=== PATIENT | male | born 1960 | race Caucasian/White ===

== ENCOUNTER 2017-04-03 22:09 | Observation (INO) | payer MEDICARE ==
[~2017-04-03] VITALS: Ht 165.1 cm; Wt 73.0 kg
[2017-04-03 22:12] VITALS: BP 146/85; PULSE 111; RESP 18; TEMP 97.4; O2SAT 96
[2017-04-03] MEDS ORDERED: INSU1.2I SQ (22:26)
[2017-04-03] MEDS ORDERED: METF500T PO (22:26)
[2017-04-03] MEDS ORDERED: FENO160T PO (22:35)
[2017-04-03 22:37] VITALS: RESP 14; O2SAT 96
[2017-04-03 22:40] VITALS: BP 123/82; PULSE 105; RESP 18; O2SAT 95
--- NOTE | 2017-04-03 22:42 | PD ---
HPI Chief Complaint: Diabetic Time Seen by Provider: 22:25 Travel History International Travel<30 days: No Contact w/Intl Traveler<30days: No Traveled to known affect area: No History of Present Illness HPI 56-year-old male complains of elevated blood sugar. Patient states that he was seen by personal physician for the past year and has borderline elevated blood sugar. Patient was advised diet control and weight loss. Patient was seen by personal physician and again a month ago and blood sugar was elevated. Patient was advised to be on medication. Patient however left home and went to [place]. Patient has not been able to see a local physician until 3 days ago. Patient was advised that his blood sugar was elevated and was put on metformin 500 mg twice a day. Patient states that his blood sugar persistently elevated despite the medication so he took metformin 1000 g twice a day today. Patient also took Tojeo today. Patient denies any headache. Patient denies any chest pain or shortness of breath. Patient states that he has intermittent left flank pain for the past month or so. Patient denies any dysuria. Patient states that he has urinary frequency. Patient complained of weight loss for the past month. Patient denies any fever chills. Patient also has history hypertension, hyperlipidemia. PFSH Past Medical History Diabetes: Yes Social History Tobacco Use: No Allergies-Medications (Allergen,Severity, Reaction): Coded Allergies: No Known Allergies (Unverified , 04/03/17) Reported Meds & Prescriptions Reported Meds & Active Scripts Active Metformin ER (Metformin HCl) 500 Mg Aleta 500 Mg PO DAILY 2 tablets by mouth BID preferably w/ meals Toujeo Solostar Pen Inj (Insulin Glargine) 300 Unit/Ml Pen 12 Units SQ HS Glimepiride 1 Mg Tab 1 Mg PO DAILY Take with breakfast or first main meal Reported Multiple Vitamin 1 Tab 1 Tab PO DAILY [Fish Oil] 1,000 Mg PO BID Vitamin B-12 (Cyanocobalamin) 1,000 Mcg Tab 1,000 Mcg PO DAILY Vitamin D3 (Cholecalciferol) 1,000 Unit Cap 1,000 Units PO DAILY Lutein 6 Mg Cap 6 Mg PO DAILY Chromium Picolinate 1,000 Mcg Tab 1 Tab PO DAILY Alpha Lipoic Acid 200 Mg Cap 200 Mg PO DAILY Turmeric (Turmeric Root Extract) 500 Mg Capsule 1 Cap PO DAILY Magnesium Oxide 400 Mg Tab 400 Mg PO DAILY Eql Cinnamon (Cinnamon) 500 Mg Cap 1,000 Mg PO BID Omeprazole 40 Mg Cap 40 Mg PO DAILY Amlodipine (Amlodipine Besylate) 5 Mg Tab 5 Mg PO DAILY Fenofibrate 160 Mg Tab 160 Mg PO DAILY Metformin (Metformin HCl) 500 Mg Tab 1,000 Mg PO ONCE With a meal Review of Systems General / Constitutional: No: Fever Eyes: No: Visual changes HENT: No: Headaches Cardiovascular: No: Chest Pain or Discomfort Respiratory: No: Shortness of Breath Gastrointestinal: No: Abdominal Pain Genitourinary: No: Dysuria Musculoskeletal: No: Pain Skin: No Rash Neurologic: No: Weakness Psychiatric: No: Depression Endocrine: No: Polydipsia Hematologic/Lymphatic: No: Easy Bruising Physical Exam Narrative GENERAL: Well-nourished, well-developed patient. SKIN: Focused skin assessment warm/dry. HEAD: Normocephalic. EYES: No scleral icterus. No injection or drainage. NECK: Supple, trachea midline. No JVD or lymphadenopathy. CARDIOVASCULAR: Regular rate and rhythm without murmurs, gallops, or rubs. RESPIRATORY: Breath sounds equal bilaterally. No accessory muscle use. GASTROINTESTINAL: Abdomen soft, non-tender, nondistended. MUSCULOSKELETAL: No cyanosis, or edema. BACK: Nontender without obvious deformity. No CVA tenderness. Neurologic exam normal. Data Data Last Documented VS Vital Signs Date Time Temp Pulse Resp B/P (MAP) Pulse Ox O2 Delivery O2 Flow Rate FiO2 04/04/17 01:10 101 16 114/74 (87) 94 Room Air 04/03/17 22:12 97.4 Orders Orders Complete Blood Count With Diff (04/03/17 22:33) Comprehensive Metabolic Panel (04/03/17 22:33) Beta Hydroxybutyrate (Acetone) (04/03/17 22:33) Iv Access Insert/Monitor (04/03/17 22:33) Ecg Monitoring (04/03/17 22:33) Oximetry (04/03/17 22:33) Sodium Chlor 0.9% 1000 Ml Inj (Ns 1000 M (04/03/17 22:45) Urinalysis - C+S If Indicated (04/03/17 22:40) Sodium Chlor 0.9% 1000 Ml Inj (Ns 1000 M (04/04/17 01:01) Dext 5%-Nacl 0.9% 1000 Ml Inj (D5w-Ns 10 (04/04/17 01:01) Insulin Human Regular Inj (Novolin R Inj (04/04/17 01:15) Insulin Regular (Iv Infusion) (Novolin R (04/04/17 01:15) Potassium Chlor 40 Meq Premix (Kcl 40 Me (04/04/17 01:15) Potassium Chlor 40 Meq Premix (Kcl 40 Me (04/04/17 01:15) Potassium Chlor 20 Meq Premix (Kcl 20 Me (04/04/17 01:15) Potassium Chlor 20 Meq Premix (Kcl 20 Me (04/04/17 01:15) Potassium Chlor 20 Meq Premix (Kcl 20 Me (04/04/17 01:15) Potassium Chlor 20 Meq Premix (Kcl 20 Me (04/04/17 01:15) Potassium Chlor 20 Meq Premix (Kcl 20 Me (04/04/17 01:15) Potassium Chlor 20 Meq Premix (Kcl 20 Me (04/04/17 01:15) Sodium Bicarbonate 8.4% Inj (Sodium Bica (04/04/17 01:15) Sodium Bicarbonate 8.4% Inj (Sodium Bica (04/04/17 01:15) Sodium Phosphate Inj (Sodium Phosphate I (04/04/17 01:15) Basic Metabolic Panel (Bmp) (04/04/17 06:01) Magnesium (Mg) (04/04/17 06:01) Phosphorus (Po4) (04/04/17 06:01) Blood Gas Venous (Vbg) (04/04/17 01:20) Sodium Chlor 0.9% 1000 Ml Inj (Ns 1000 M (04/04/17 01:30) Admit Order (Ed Use Only) (04/04/17 ) Place In Observation (04/04/17 ) Vital Signs (Adult) Q4H (04/04/17 01:32) Activity Oob With Assistance (04/04/17 01:32) [place] Drill Operator / Telemetry .CONTINUOUS (04/04/17 01:32) Sodium Chlor 0.9% 1000 Ml Inj (Ns 1000 M (04/04/17 01:32) Sodium Chloride 0.9% Flush (Ns Flush) (04/04/17 01:45) Sodium Chloride 0.9% Flush (Ns Flush) (04/04/17 09:00) Case Management Consult (04/04/17 01:32) Naloxone Inj (Narcan Inj) (04/04/17 01:45) Bedside Glucose Q4H (04/04/17 01:32) Blood Glucose Goal (Criteria) (04/04/17 01:32) Hypoglycemia 70 Mg/Dl Or < (04/04/17 01:32) Notify Dr: Other (04/04/17 01:32) Dextrose 50% In Jose (Vial) Inj (D50w (Vi (04/04/17 01:45) Glucagon Inj (Glucagon Inj) (04/04/17 01:45) Insulin Aspart Supplemtl Scale (Novolog (04/04/17 02:00) Sodium Chlor 0.9% 1000 Ml Inj (Ns 1000 M (04/04/17 01:45) ^ Other Nursing Orders (04/04/17 01:32) ^ Other Nursing Orders (04/04/17 01:32) Labs Laboratory Tests Test 04/03/17 23:00 04/04/17 00:25 04/04/17 01:25 White Blood Count 12.8 TH/MM3 Red Blood Count 4.17 MIL/MM3 Hemoglobin 12.7 GM/DL Hematocrit 38.7 % Mean Corpuscular Volume 92.8 FL Mean Corpuscular Hemoglobin 30.4 PG Mean Corpuscular Hemoglobin Concent 32.7 % Red Cell Distribution Width 12.6 % Platelet Count 308 TH/MM3 Mean Platelet Volume 7.9 FL Neutrophils (%) (Auto) 70.0 % Lymphocytes (%) (Auto) 19.5 % Monocytes (%) (Auto) 8.3 % Eosinophils (%) (Auto) 0.3 % Basophils (%) (Auto) 1.9 % Neutrophils # (Auto) 9.0 TH/MM3 Lymphocytes # (Auto) 2.5 TH/MM3 Monocytes # (Auto) 1.1 TH/MM3 Eosinophils # (Auto) 0.0 TH/MM3 Basophils # (Auto) 0.2 TH/MM3 CBC Comment DIFF FINAL Differential Comment Blood Urea Nitrogen 26 MG/DL Creatinine 0.60 MG/DL Random Glucose 353 MG/DL Total Protein 7.3 GM/DL Albumin 2.4 GM/DL Calcium Level 9.3 MG/DL Alkaline Phosphatase 86 U/L Aspartate Amino Transf (AST/SGOT) 16 U/L Alanine Aminotransferase (ALT/SGPT) 22 U/L Total Bilirubin 0.4 MG/DL Sodium Level 131 MEQ/L Potassium Level 3.7 MEQ/L Chloride Level 98 MEQ/L Carbon Dioxide Level 17.1 MEQ/L Anion Gap 16 MEQ/L Estimat Glomerular Filtration Rate 139 ML/MIN B-Hydroxybutyrate 5.68 MMOL/L Urine Color YELLOW Urine Turbidity CLEAR Urine pH 6.0 Urine Specific [place] 1.030 Urine Protein NEG mg/dL Urine Glucose (UA) 1000 OR GREATER mg/dL Urine Ketones 80 OR GREATER mg/dL Urine Occult Blood NEG Urine Nitrite NEG Urine Bilirubin NEG Urine Leukocyte Esterase NEG Urine WBC 0-2 /hpf Urine Squamous Epithelial Cells 0-5 /hpf Microscopic Urinalysis Comment CULT NOT INDICATED Blood Gas Puncture Site IV Blood Gas Patient Temperature 98.6 Venous Blood pH 7.41 Venous Blood Partial Pressure CO2 30 mmHg Venous Blood Partial Pressure O2 70 mmHg Venous Blood HCO3 19 mmol/L Venous Blood Oxygen Saturation 91 % Venous Blood Oxygen Content 15.5 Vol % Venous Blood Base Excess -5.3 mmol/L Oxygen Delivery Device ROOM AIR Blood Gas Inspired Oxygen 21 % MDM Medical Decision Making Medical Screen Exam Complete: Yes Emergency Medical Condition: Yes Differential Diagnosis Differential diagnosis including hyperglycemia, DKA. Narrative Course 56-year-old male with elevated blood sugar. Patient has history of diabetes recently was started on metformin. Scripts Metformin ER (Metformin ER) 500 Mg [place] 500 MG PO DAILY for Blood Sugar Management, #60 TAB 0 Refills 2 tablets by mouth BID preferably w/ meals Prov: Anastacio Hodge MD 04/04/17 Insulin Glargine Inj (Toujeo Solostar Pen Inj) 300 Unit/Ml Pen 12 UNITS SQ HS for Blood Sugar Management, #1 PEN 0 Refills Prov: Anastacio Hodge MD 04/04/17 Glimepiride (Glimepiride) 1 Mg Tab 1 MG PO DAILY for Blood Sugar Management, #30 TAB 0 Refills Take with breakfast or first main meal Prov: Anastacio Hodge MD 04/04/17 Isaak Ang MD Apr 03, 2017 22:42
[2017-04-03] MEDS ORDERED: SODIUM CHLOR 0.9% 1000 ML INJ 1,000 ML IV ONE (22:45)
[2017-04-03 23:10] VITALS: BP 102/80; PULSE 108; RESP 14; O2SAT 95
[2017-04-03 23:14] LABS: BASOPHIL # 0.2 TH/MM3 (0-0.2); BASOPHIL % 1.9 % (0.0-2.0); EOSINOPHIL % 0.3 % (0.0-4.0); HEMATOCRIT 38.7 % (39.0-51.0); HEMOGLOBIN 12.7 GM/DL (13.0-17.0); LYMPH % 19.5 % (9.0-44.0); LYMPHOCYTE # 2.5 TH/MM3 (1.0-4.8); MEAN CELL VOLUME 92.8 FL (80.0-100.0); MEAN CORPUSCULAR HEMOGLOBIN 30.4 PG (27.0-34.0); MEAN CORPUSCULAR HGB CONC 32.7 % (32.0-36.0); MEAN PLATELET VOLUME 7.9 FL (7.0-11.0); MONO % 8.3 % (0.0-8.0); MONOCYTE # 1.1 TH/MM3 (0-0.9); PLATELET COUNT 308 TH/MM3 (150-450); RED BLOOD COUNT 4.17 MIL/MM3 (4.50-5.90); RED CELL DISTRIBUTION WIDTH 12.6 % (11.6-17.2); WHITE BLOOD COUNT 12.8 TH/MM3 (4.0-11.0)
[2017-04-03 23:22] LABS: BLOOD UREA NITROGEN 26 MG/DL (7-18); CHLORIDE 98 MEQ/L (98-107); GLOMERULAR FILTRATION RATE 139 ML/MIN (>89); GLUCOSE,RANDOM 353 MG/DL (74-106); SODIUM (NA) 131 MEQ/L (136-145)
[2017-04-03 23:40] VITALS: BP 121/82; PULSE 104; RESP 16; O2SAT 96
[2017-04-03] MEDS ORDERED: CHRO1000 PO (23:56)
[2017-04-03] MEDS ORDERED: LUTE6CAP2 PO (23:56)
[2017-04-03] MEDS ORDERED: MAGN400T2 PO (23:56)
[2017-04-03] MEDS ORDERED: TURM500C7 PO (23:56)
[2017-04-03] MEDS ORDERED: MULTTAB67 PO (23:56)
[2017-04-03] MEDS ORDERED: OMEP40CA2 PO (23:56)
[2017-04-03] MEDS ORDERED: ALPH200C4 PO (23:56)
[2017-04-03] MEDS ORDERED: AMLO5TAB2 PO (23:56)
[2017-04-03] MEDS ORDERED: VITA10002 PO (23:56)
[2017-04-03] MEDS ORDERED: FISHOIL PO (23:56)
[2017-04-03] MEDS ORDERED: CINN500C2 PO (23:56)
[2017-04-03] MEDS ORDERED: CHOL10008 PO (23:56)
[2017-04-04] VITALS (15 sets, daily range): BP systolic 110–140; BP diastolic 70–89; PULSE 82–104; RESP 12–25; TEMP 97.7–98.7; O2SAT 92–98
[2017-04-04 00:04] LABS: ALBUMIN 2.4 GM/DL (3.4-5.0); ALT (GPT) 22 U/L (12-78); AST (GOT) 16 U/L (15-37); BICARBONATE 17.1 MEQ/L (21.0-32.0); CALCIUM 9.3 MG/DL (8.5-10.1)
[2017-04-04 00:13] LABS: ALKALINE PHOSPHATASE 86 U/L (45-117); TOTAL BILIRUBIN ADULT 0.4 MG/DL (0.2-1.0); TOTAL PROTEIN 7.3 GM/DL (6.4-8.2)
[2017-04-04 00:42] LABS: BLOOD, URINE NEG (NEG); GLUCOSE,URINE 1000 OR GREATER mg/dL (NEG); KETONE, URINE 80 OR GREATER mg/dL (NEG); NITRITE,URINE NEG (NEG); URINE LEUKOCYTE ESTERASE NEG (NEG)
[2017-04-04 00:56] LABS: BILIRUBIN, URINE NEG (NEG)
[2017-04-04 00:58] LABS: SQUAMOUS EPITHELIAL CELL URINE 0-5 /hpf (0-5); URINE COLOR YELLOW (YELLW/STRAW); WBC, URINE 0-2 /hpf (0-5)
[2017-04-04] MEDS ORDERED: DEXT 5%-NACL 0.9% 1000 ML INJ 1,000 ML IV SCH ×2 (01:01→09:00)
[2017-04-04] MEDS ORDERED: SODIUM CHLOR 0.9% 1000 ML INJ 1,000 ML IV SCH (01:01)
[2017-04-04] MEDS ORDERED: INSULIN REGULAR (IV INFUSION) 100 UNITS in SODIUM CHLORIDE 0.9% INJ 99 ML IV PRN ×2 (01:15→09:00)
[2017-04-04] MEDS ORDERED: POTASSIUM CHLOR 40 MEQ PREMIX 100 ML IV PRN ×4 (01:15→08:45)
[2017-04-04] MEDS ORDERED: POTASSIUM CHLOR 20 MEQ PREMIX 100 ML IV PRN ×12 (01:15→08:45)
[2017-04-04] MEDS ORDERED: SODIUM PHOSPHATE INJ 15 MMOL in SODIUM CHLORIDE 0.9% INJ 100 ML IV PRN ×2 (01:15→08:45)
[2017-04-04] MEDS ORDERED: INSULIN HUMAN REGULAR 1,000 UNITS/10 ML VIAL IV PUSH ONE (01:15)
[2017-04-04] MEDS ORDERED: SODIUM BICARBONATE 8.4% SOLN 50 MEQ/50 ML VIAL IV PUSH PRN ×4 (01:15→08:45)
[2017-04-04] MEDS ORDERED: SODIUM CHLOR 0.9% 1000 ML INJ 1,000 ML IV ONE ×2 (01:30→01:45)
--- NOTE | 2017-04-04 01:34 | PD ---
Physical Exam Narrative Patient signed out to me by Dr. Ang. Please see his documentation for complete details. Briefly, patient is a 56-year-old male who comes in because he is concerned about his high sugars. He was recently diagnosed with diabetes and was just started on medications. Apparently somebody told him that his high blood sugar could cause him to have a coma, so he came in. He took long-acting insulin at home as well as an urgent care. Data Data Last Documented VS Vital Signs Date Time Temp Pulse Resp B/P (MAP) Pulse Ox O2 Delivery O2 Flow Rate FiO2 04/03/17 23:10 108 14 102/80 (87) 95 Room Air 04/03/17 22:12 97.4 Orders Orders Complete Blood Count With Diff (04/03/17 22:33) Comprehensive Metabolic Panel (04/03/17 22:33) Beta Hydroxybutyrate (Acetone) (04/03/17 22:33) Iv Access Insert/Monitor (04/03/17 22:33) Ecg Monitoring (04/03/17 22:33) Oximetry (04/03/17 22:33) Sodium Chlor 0.9% 1000 Ml Inj (Ns 1000 M (04/03/17 22:45) Urinalysis - C+S If Indicated (04/03/17 22:40) Netbackup Administrator / Telemetry VICTOR M.Q8H (04/04/17 01:01) ^ Insert Iv (04/04/17 01:01) Diet Npo (04/04/17 Breakfast) Sodium Chlor 0.9% 1000 Ml Inj (Ns 1000 M (04/04/17 01:01) Dext 5%-Nacl 0.9% 1000 Ml Inj (D5w-Ns 10 (04/04/17 01:01) Insulin Human Regular Inj (Novolin R Inj (04/04/17 01:15) Insulin Regular (Iv Infusion) (Novolin R (04/04/17 01:15) Potassium Chlor 40 Meq Premix (Kcl 40 Me (04/04/17 01:15) Potassium Chlor 40 Meq Premix (Kcl 40 Me (04/04/17 01:15) Potassium Chlor 20 Meq Premix (Kcl 20 Me (04/04/17 01:15) Potassium Chlor 20 Meq Premix (Kcl 20 Me (04/04/17 01:15) Potassium Chlor 20 Meq Premix (Kcl 20 Me (04/04/17 01:15) Potassium Chlor 20 Meq Premix (Kcl 20 Me (04/04/17 01:15) Potassium Chlor 20 Meq Premix (Kcl 20 Me (04/04/17 01:15) Potassium Chlor 20 Meq Premix (Kcl 20 Me (04/04/17 01:15) Sodium Bicarbonate 8.4% Inj (Sodium Bica (04/04/17 01:15) Sodium Bicarbonate 8.4% Inj (Sodium Bica (04/04/17 01:15) Sodium Phosphate Inj (Sodium Phosphate I (04/04/17 01:15) Basic Metabolic Panel (Bmp) (04/04/17 06:01) Basic Metabolic Panel (Bmp) (04/04/17 12:01) Basic Metabolic Panel (Bmp) (04/04/17 18:01) Basic Metabolic Panel (Bmp) (04/05/17 00:01) Magnesium (Mg) (04/04/17 06:01) Magnesium (Mg) (04/04/17 12:01) Magnesium (Mg) (04/04/17 18:01) Magnesium (Mg) (04/05/17 00:01) Phosphorus (Po4) (04/04/17 06:01) Phosphorus (Po4) (04/04/17 12:01) Phosphorus (Po4) (04/04/17 18:01) Phosphorus (Po4) (04/05/17 00:01) Beta Hydroxybutyrate (Acetone) (04/04/17 12:01) Beta Hydroxybutyrate (Acetone) (04/05/17 00:01) Blood Gas Venous (Vbg) (04/04/17 01:20) Sodium Chlor 0.9% 1000 Ml Inj (Ns 1000 M (04/04/17 01:30) Admit Order (Ed Use Only) (04/04/17 ) Labs Laboratory Tests Test 04/03/17 23:00 04/04/17 00:25 White Blood Count 12.8 TH/MM3 Red Blood Count 4.17 MIL/MM3 Hemoglobin 12.7 GM/DL Hematocrit 38.7 % Mean Corpuscular Volume 92.8 FL Mean Corpuscular Hemoglobin 30.4 PG Mean Corpuscular Hemoglobin Concent 32.7 % Red Cell Distribution Width 12.6 % Platelet Count 308 TH/MM3 Mean Platelet Volume 7.9 FL Neutrophils (%) (Auto) 70.0 % Lymphocytes (%) (Auto) 19.5 % Monocytes (%) (Auto) 8.3 % Eosinophils (%) (Auto) 0.3 % Basophils (%) (Auto) 1.9 % Neutrophils # (Auto) 9.0 TH/MM3 Lymphocytes # (Auto) 2.5 TH/MM3 Monocytes # (Auto) 1.1 TH/MM3 Eosinophils # (Auto) 0.0 TH/MM3 Basophils # (Auto) 0.2 TH/MM3 CBC Comment DIFF FINAL Differential Comment Blood Urea Nitrogen 26 MG/DL Creatinine 0.60 MG/DL Random Glucose 353 MG/DL Total Protein 7.3 GM/DL Albumin 2.4 GM/DL Calcium Level 9.3 MG/DL Alkaline Phosphatase 86 U/L Aspartate Amino Transf (AST/SGOT) 16 U/L Alanine Aminotransferase (ALT/SGPT) 22 U/L Total Bilirubin 0.4 MG/DL Sodium Level 131 MEQ/L Potassium Level 3.7 MEQ/L Chloride Level 98 MEQ/L Carbon Dioxide Level 17.1 MEQ/L Anion Gap 16 MEQ/L Estimat Glomerular Filtration Rate 139 ML/MIN B-Hydroxybutyrate 5.68 MMOL/L Urine Color YELLOW Urine Turbidity CLEAR Urine pH 6.0 Urine Specific [place] 1.030 Urine Protein NEG mg/dL Urine Glucose (UA) 1000 OR GREATER mg/dL Urine Ketones 80 OR GREATER mg/dL Urine Occult Blood NEG Urine Nitrite NEG Urine Bilirubin NEG Urine Leukocyte Esterase NEG Urine WBC 0-2 /hpf Urine Squamous Epithelial Cells 0-5 /hpf Microscopic Urinalysis Comment CULT NOT INDICATED MDM Supervised Visit with LEANDRA: No Narrative Course Labs show an anion gap of 16 and a beta hydroxybutyrate of 5.6. Patient given insulin and fluids. He will be admitted for further management. Diagnosis Primary Impression: Hyperglycemia Admitting Information Admitting Physician Requests: Admit Lisbeth Márquez MD Apr 04, 2017 01:34
[2017-04-04] MEDS ORDERED: GLUCAGON 1 MG/ML VIAL OTHER PRN ×2 (01:45→09:15)
[2017-04-04] MEDS ORDERED: NALOXONE HCL 0.4 MG/ML AMP IV PUSH PRN (01:45)
[2017-04-04] MEDS ORDERED: DEXTROSE 50% IN WATER 50 ML VIAL(D50) IV PUSH PRN ×2 (01:45→09:15)
[2017-04-04] MEDS ORDERED: SODIUM CHLORIDE 0.9% FLUSH 10 ML FLUSH IV FLUSH PRN (01:45)
[2017-04-04] MEDS: INSULIN ASPART SUPPLEMENTAL SCALE SQ SCH ×4 (02:00→18:15)
[2017-04-04 02:35] LABS: BICARBONATE 20.5 MEQ/L (21.0-32.0); CALCIUM 8.4 MG/DL (8.5-10.1); CREATININE 0.85 MG/DL (0.60-1.30)
[2017-04-04] MEDS: SODIUM CHLOR 0.9% 1000 ML INJ 1,000 ML IV SCH ×2 (02:57→04:34)
[2017-04-04] MEDS ORDERED: POTASSIUM CHLORIDE 20 MEQ CONTROLLED RELEASE TAB PO ONE (04:15)
[2017-04-04] MEDS: POTASSIUM CHLOR 20 MEQ PREMIX 100 ML IV SCH ×2 (04:31→06:42)
[2017-04-04 05:21] LABS: CALCIUM 7.8 MG/DL (8.5-10.1)
[2017-04-04 05:22] LABS: BICARBONATE 23.2 MEQ/L (21.0-32.0); MAGNESIUM 1.6 MG/DL (1.5-2.5)
[2017-04-04 05:25] LABS: CREATININE 0.84 MG/DL (0.60-1.30); PHOSPHORUS 1.5 MG/DL (2.5-4.9)
[2017-04-04] MEDS ORDERED: MISCELLANEOUS NURSING INFORMATION XX SCH (08:45)
[2017-04-04] MEDS ORDERED: CHLORHEXIDINE GLUCONATE 2 % 1 PACK (2 CLOTHS) TOP PRN (08:45)
[2017-04-04] MEDS ORDERED: SODIUM CHLORIDE 0.9% FLUSH 10 ML FLUSH IV FLUSH SCH (09:00)
--- NOTE | 2017-04-04 09:06 | HHI.HP ---
[facility] Primary Care Physician Admission Diagnosis Hyperglycemia Diagnoses: Travel History International Travel<30 Days: No Contact w/Intl Traveler <30 Da: No Traveled to Known Affected Are: No History of Present Illness 56-year-old white male being admitted for diabetic ketoacidosis. Patient was in his usual state of health until last week when he went to a local urgent doctor and was diagnosed with diabetes. He was prescribed metformin as well as a glucometer. He states that his home sugars were reaching anywhere from the 400s to 500 so he went to a primary care physician and states that he was given some type of injection based hypoglycemic, presumably insulin. He says he took 200 mg of this but I'm afraid he does not understand the reading or the insulin. He says they brought his sugars down to the 200s but then upon rechecking yesterday and went up to the 400s and after counseling with his [id number] he decided to come to the emergency department. Patient does report polyuria and weight loss. He denies any nausea vomiting or diarrhea. He recently moved down here from [place]. Review of Systems Except as stated in HPI: all other systems reviewed are Neg Past Family Social History Past Medical History Hyperlipidemia Hypertension GERD Past Surgical History Denies any surgeries Allergies: Coded Allergies: No Known Allergies (Unverified , 04/03/17) Family History No family history of diabetes Social History Denies smoking Physical Exam Vital Signs Vital Signs Date Time Temp Pulse Resp B/P (MAP) Pulse Ox O2 Delivery O2 Flow Rate FiO2 04/04/17 07:00 88 04/04/17 06:21 94 25 113/77 (89) 96 04/04/17 04:46 94 Nasal Cannula 2.00 04/04/17 03:57 94 04/04/17 03:11 98.0 102 12 140/88 (105) 93 04/04/17 03:00 04/04/17 02:30 104 16 94 Room Air 04/04/17 02:10 104 16 110/70 (83) 95 Room Air 04/04/17 01:10 101 16 114/74 (87) 94 Room Air 04/03/17 23:40 104 16 121/82 (95) 96 Room Air 04/03/17 23:10 108 14 102/80 (87) 95 Room Air 04/03/17 22:40 105 18 123/82 (96) 95 Room Air 04/03/17 22:37 14 96 Room Air 04/03/17 22:30 105 16 96 Room Air 04/03/17 22:12 97.4 111 18 146/85 (105) 96 Physical Exam VS: afebrile GENERAL: Middle-aged white male, well-nourished, no acute distress SKIN: Warm and dry. EYES: No scleral icterus. No injection or drainage. ENT: No nasal bleeding or discharge. Mucous membranes pink and moist. CARDIOVASCULAR: Regular rate and rhythm. no murmurs RESPIRATORY: No accessory muscle use. Clear to auscultation. Breath sounds equal bilaterally. GASTROINTESTINAL: Abdomen soft, non-tender, nondistended. Extremities: No clubbing, cyanosis, or edema. No obvious deformities. MUSCULOSKELETAL: grossly intact ROM with 5/5 strength in upper and lower extremities proximally; adequate muscle bulk and tone for age and habitus NEUROLOGICAL: Awake and alert. No obvious cranial nerve deficits. No facial droop nor slurred speech noted. PSYCHIATRIC: Appropriate mood and affect; insight and judgment normal. Laboratory Laboratory Tests Test 04/03/17 23:00 04/04/17 00:25 04/04/17 01:25 04/04/17 02:05 White Blood Count 12.8 Red Blood Count 4.17 Hemoglobin 12.7 Hematocrit 38.7 Mean Corpuscular Volume 92.8 Mean Corpuscular Hemoglobin 30.4 Mean Corpuscular Hemoglobin Concent 32.7 Red Cell Distribution Width 12.6 Platelet Count 308 Mean Platelet Volume 7.9 Neutrophils (%) (Auto) 70.0 Lymphocytes (%) (Auto) 19.5 Monocytes (%) (Auto) 8.3 Eosinophils (%) (Auto) 0.3 Basophils (%) (Auto) 1.9 Neutrophils # (Auto) 9.0 Lymphocytes # (Auto) 2.5 Monocytes # (Auto) 1.1 Eosinophils # (Auto) 0.0 Basophils # (Auto) 0.2 CBC Comment DIFF FINAL Differential Comment Blood Urea Nitrogen 26 26 Creatinine 0.60 0.85 Random Glucose 353 252 Total Protein 7.3 Albumin 2.4 Calcium Level 9.3 8.4 Alkaline Phosphatase 86 Aspartate Amino Transf (AST/SGOT) 16 Alanine Aminotransferase (ALT/SGPT) 22 Total Bilirubin 0.4 Sodium Level 131 137 Potassium Level 3.7 2.9 Chloride Level 98 102 Carbon Dioxide Level 17.1 20.5 Anion Gap 16 15 Estimat Glomerular Filtration Rate 139 93 B-Hydroxybutyrate 5.68 Urine Color YELLOW Urine Turbidity CLEAR Urine pH 6.0 Urine Specific [place] 1.030 Urine Protein NEG Urine Glucose (UA) 1000 OR GREATER Urine Ketones 80 OR GREATER Urine Occult Blood NEG Urine Nitrite NEG Urine Bilirubin NEG Urine Leukocyte Esterase NEG Urine WBC 0-2 Urine Squamous Epithelial Cells 0-5 Microscopic Urinalysis Comment CULT NOT INDICATED Blood Gas Puncture Site IV Blood Gas Patient Temperature 98.6 Venous Blood pH 7.41 Venous Blood Partial Pressure CO2 30 Venous Blood Partial Pressure O2 70 Venous Blood HCO3 19 Venous Blood Oxygen Saturation 91 Venous Blood Oxygen Content 15.5 Venous Blood Base Excess -5.3 Oxygen Delivery Device ROOM AIR Blood Gas Inspired Oxygen 21 Test 04/04/17 04:20 Blood Urea Nitrogen 25 Creatinine 0.84 Random Glucose 246 Calcium Level 7.8 Phosphorus Level 1.5 Magnesium Level 1.6 Sodium Level 139 Potassium Level 3.2 Chloride Level 104 Carbon Dioxide Level 23.2 Anion Gap 12 Estimat Glomerular Filtration Rate 94 Result Diagram: 04/03/17 2300 04/04/17 0420 Caprini VTE Risk Assessment Caprini VTE Risk Assessment: No/Low Risk (score <= 1) Caprini Risk Assessment Model Point Value = 1 Point Value = 2 Point Value = 3 Point Value = 5 Age 41-60 Minor surgery BMI > 25 kg/m2 Swollen legs Varicose veins or History of unexplained or recurrent spontaneous Oral contraceptives or hormone replacement Sepsis (< 1 month) Serious lung disease, including pneumonia (< 1 month) Abnormal pulmonary function Acute myocardial infarction Congestive heart failure (< 1 month) History of inflammatory bowel disease Medical patient at bed rest Age 61-74 Arthroscopic surgery Major open surgery (> 45 min) Laparoscopic surgery (> 45 min) Malignancy Confined to bed (> 72 hours) Immobilizing plaster cast Central venous access Age >= 75 History of VTE Family history of VTE Factor V Leiden Prothrombin [id number] Lupus anticoagulant Anticardiolipin antibodies Elevated serum homocysteine Heparin-induced thrombocytopenia Other congenital or acquired thrombophilia Stroke (< 1 month) Elective arthroplasty Hip, pelvis, or leg fracture Acute spinal cord injury (< 1 month) Prophylaxis Regimen Total Risk Factor Score Risk Level Prophylaxis Regimen 0-1 Low Early ambulation 2 Moderate Order ONE of the following: *Sequential Compression Device (SCD) *Heparin 5000 units SQ BID 3-4 Higher Order ONE of the following medications: *Heparin 5000 units SQ TID *Enoxaparin/Lovenox 40 mg SQ daily (WT < 150 kg, CrCl > 30 mL/min) *Enoxaparin/Lovenox 30 mg SQ daily (WT < 150 kg, CrCl > 10-29 mL/min) *Enoxaparin/Lovenox 30 mg SQ BID (WT < 150 kg, CrCl > 30 mL/min) AND/OR *Sequential Compression Device (SCD) 5 or more Highest Order ONE of the following medications: *Heparin 5000 units SQ TID (Preferred with Epidurals) *Enoxaparin/Lovenox 40 mg SQ daily (WT < 150 kg, CrCl > 30 mL/min) *Enoxaparin/Lovenox 30 mg SQ daily (WT < 150 kg, CrCl > 10-29 mL/min) *Enoxaparin/Lovenox 30 mg SQ BID (WT < 150 kg, CrCl > 30 mL/min) AND *Sequential Compression Device (SCD) Assessment and Plan Assessment and Plan 56-year-old white male being admitted for diabetic ketoacidosis - Upon presentation his gap was 16 with elevated beta hydroxy rate - Received aggressive IV fluids along with subcutaneous insulin, successfully has brought down his sugars to the 230s - So far has received a total of 15 units of based upon HDSS w/ NovoLog subQ. Will transition to LDSS. - educator senior clinical and glued wood tester consult - obtaining A1c Addendum: Patient's glucoses have been holding steady in the low 200s with low- dose sliding scale and his anion gap has closed. He has undergone diabetic education counseling. In total he has received about 21 units of insulin while here in the hospital. Nursing has educated the patient on appropriate dosing for his sample tuojeo pen that he has where has now been instructed to dose 12 units at night every night. Nursing administered 12 units of the patient's own toujeo before he left the hospital. Patient was instructed to take his Nexium insulin dose to next evening. We are going to double his metformin regimen so that he takes a total of 2000 mg daily. We will also add on for better mealtime control with glimepiride; and have his primary care doctor to follow him up outpatient and to eventually add on mealtime insulin. Patient has met maximum benefit from hospitalization and is clinically stable for discharge. Physician Certification 2 Midnight Certification Type: Admission for Inpatient Services Order for Inpatient Services The services are ordered in accordance with Medicare regulations or non- Medicare payer requirements, as applicable. In the case of services not specified as inpatient-only, they are appropriately provided as inpatient services in accordance with the 2-midnight benchmark. Estimated LOS (days): 2 2 days is the estimated time the patient will need to remain in the hospital, assuming treatment plan goals are met and no additional complications. Post-Hospital Plan: Home Anastacio Hodge MD Apr 04, 2017 09:06
[2017-04-04 13:05] LABS: BICARBONATE 24.4 MEQ/L (21.0-32.0); CALCIUM 8.4 MG/DL (8.5-10.1); MAGNESIUM 1.6 MG/DL (1.5-2.5)
[2017-04-04 13:08] LABS: CREATININE 0.78 MG/DL (0.60-1.30)
[2017-04-04 13:09] LABS: PHOSPHORUS 1.7 MG/DL (2.5-4.9)
[2017-04-04] MEDS ORDERED: GLIM1TAB PO (16:41)
--- NOTE | 2017-04-04 16:42 | HHI.DCPOC ---
Discharge Care Plan Diagnosis: (1) Hyperglycemia (2) Diabetic keto-acidosis Goals to Promote Your Health * To prevent worsening of your condition and complications * To maintain your health at the optimal level Directions to Meet Your Goals Take your medications as prescribed Follow your dietary instruction Follow activity as directed Keep your appointments as scheduled Take your immunizations and boosters as scheduled If your symptoms worsen call your PCP, if no PCP go to Urgent Care Center or Emergency Room Smoking is Dangerous to Your Health. Avoid second hand smoke Call the 24-hour hour crisis hotline for domestic abuse at Anastacio Hodge MD Apr 04, 2017 16:42
[2017-04-04] MEDS ORDERED: INSU1.2I SQ ×2 (17:04→17:34)
[2017-04-04 17:15] LABS: HEMOGLOBIN A1C 13.8 % (4.3-6.0)
[2017-04-04] MEDS ORDERED: METF500T4 PO (17:34)
[2017-04-05] MEDS ORDERED: CHLORHEXIDINE GLUCONATE 2 % 1 PACK (2 CLOTHS) TOP SCH (04:00)
== END 2017-04-04 18:19 | disposition home or self-care (01) ==
LOC: PHED 22:09 → INTOOBSV 04-04 01:34 → PHEDA 04-04 01:34 → PHICU 04-04 03:02
PROVIDERS: ADMIT Hospitalist; ATTEND Hospitalist
DX: E11.10 Type 2 diabetes mellitus with ketoacidosis without coma (principal); R35.0 Frequency of micturition; I10 Essential (primary) hypertension; E78.5 Hyperlipidemia, unspecified; Z79.899 Other long term (current) drug therapy; Z79.4 Long term (current) use of insulin
CPT/HCPCS: 80048; 80053; 81001; 82010; 82805; 82948; 83036; 83735; 84100; 85025; 87641; 96361; 96365; 96366; 96372; 99285; G0378; J1815; J3480; J7030